=== PATIENT | female | born 1980 | race Caucasian/White ===

== ENCOUNTER 2017-02-24 17:30 | Emergency (ER) | payer OTHER ==
[2017-02-24] MEDS ORDERED: ALBUTEROL NEB 2.5 MG/3 ML INH STA (18:02)
--- NOTE | 2017-02-24 18:03 | ED Physician Documentation ---
PD HPI DYSPNEA - Stated complaint Stated Complaint: COUGH/DIFFICULTY BREATHING - Chief complaint Chief Complaint: Resp - History obtained from History obtained from: Patient - History of Present Illness Timing - onset: Other (4 days of illness with productive cough and chest tightness associated with shortness of breath and fevers. She had body aches at the outset which are now gone. She saw her physician 2 days ago and was diagnosed with clinical pneumonia, despite taking a Z-Shaquille she is not improving. She also has been taking hydrocodone-containing cough syrup. She has no personal history of asthma or other pulmonary diseases.) Review of Systems Constitutional: reports: Fever, Chills, Myalgias (gone), Fatigue Nose: denies: Rhinorrhea / runny nose Throat: denies: Sore throat Cardiac: reports: Chest pain / pressure. 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) Psych: Post traumatic stress disorder Musculoskeletal: Chronic back pain Derm: Other - Past Surgical History Past Surgical History: No Ortho: Spine surgery, Other - Present Medications Home Medications: Ambulatory Orders Medication Instructions Recorded Confirmed Albuterol Sulfate [Proventil Hfa 1 - 2 puffs IH Q4H PRN #1 02/24/17 Inhaler] hfa.aer.ad Azithromycin [Zithromax] 1 gm PO DAILY 02/24/17 02/24/17 Guaifenesin/Pseudoephedrne HCl 1 each PO BID PRN #20 tab.er.12h 02/24/17 [Mucinex D ER 600-60 mg Tablet] HYDROcod/ACETAM 5/325 [Salyer 5/325] 1 - 2 ea PO Q6H PRN 02/24/17 02/24/17 Hydrocodone/Chlorpheniramine 5 - 10 ml PO Q6H PRN #120 ml 02/24/17 [Vituz Solution] predniSONE [Deltasone] 60 mg PO DAILY 5 Days tablet 02/24/17 - Allergies Allergies/Adverse Reactions: Allergies Allergy/AdvReac Type Severity Reaction Status Date / Time aspirin Allergy Hives Verified 02/24/17 17:36 - Social History Does the pt smoke?: No Smoking Status: Never smoker Does the pt drink ETOH?: No Does the pt have substance abuse?: No - Immunizations Immunizations are current?: Yes - POLST Patient has POLST: No PD ED PE NORMAL - Vitals Vital signs reviewed: Yes - General General: Alert and oriented X 3, No acute distress - HEENT HEENT: Other (Status post tonsillectomy) - Neck Neck: Supple, no meningeal sign, No bony TTP, No adenopathy - Cardiac Cardiac: RRR, No murmur - Respiratory Respiratory: No respiratory distress, Other (Wheezy throughout without focal findings) - Abdomen Abdomen: Non tender - Extremities Extremities: No edema, No calf tenderness / cord - Neuro Neuro: Alert and oriented X 3, Normal speech Results - Vitals Vitals: Vital Signs - 24 hr 02/24/17 02/24/17 02/24/17 17:34 18:00 19:14 Temperature 36.6 C 37.0 C Heart Rate 111 H 99 102 H Respiratory 16 18 16 Rate Blood Pressure 130/90 H 138/76 H O2 Saturation 96 96 Oxygen O2 Source Room air - Rads (name of study) 2v chest Radiology: EMP read contemporaneously (Poss lingular infiltrate) PD MEDICAL DECISION MAKING - ED course ED course: She presents with productive cough and other viral symptoms a couple of days after being treated with Z-Shaquille for presumed pneumonia. Possible lingular infiltrate versus epicardial fat pad here, but will continue the antibiotics. Departure - Departure Disposition: 01 Home, Self Care Clinical Impression: Bronchitis Condition: Good Record reviewed to determine appropriate education?: Yes Instructions: ED Bronchitis Asthmatic Prescriptions: Albuterol Sulfate [Proventil Hfa Inhaler] 1 - 2 puffs IH Q4H PRN #1 hfa.aer.ad PRN Reason: Cough Guaifenesin/Pseudoephedrne HCl [Mucinex D ER 600-60 mg Tablet] 1 each PO BID PRN #20 tab.er.12h PRN Reason: congestion Hydrocodone/Chlorpheniramine [Vituz Solution] 5 - 10 ml PO Q6H PRN #120 ml PRN Reason: Cough predniSONE [Deltasone] 60 mg PO DAILY 5 Days tablet Comments: Call your doctor to arrange a follow-up appointment, make the next available appointment. In the interim, return anytime if worse or if new symptoms develop. Your blood pressure was elevated today on check into the emergency department. This does not mean that you have hypertension, it is a common phenomenon to come to the emergency department and have elevated blood pressure. I recommend that you see your primary care physician within the week to have it rechecked when you are feeling better. Discharge Date/Time: 02/24/17 19:15
--- NOTE | 2017-02-24 18:05 | XRAY Report ---
EXAM: CHEST RADIOGRAPHY EXAM DATE: 02/24/2017 05:57 PM. CLINICAL HISTORY: Cough. COMPARISON: None. TECHNIQUE: 2 views. FINDINGS: Lungs/Pleura: Lung volumes are somewhat low. There is opacity within the left lateral lung base on fr ontal view without clear correlate on lateral view. No evidence of pleural effusion. No pneumothorax. Mediastinum: Heart and mediastinal contours are unremarkable. Other: Intrathecal leads are in place. IMPRESSION: 1. Lung volumes are somewhat low. Normal heart size. 2. Opacity within the left lung base on frontal view could represent prominent epicardiac fat or ling ular infiltrate. 3. Lungs are otherwise clear. 4. No pneumothorax. [facility] Referring Provider Line: [phone] SITE ID: [id number]
[2017-02-24 19:15] VITALS: BP 138/76
== END 2017-02-24 19:15 | disposition home or self-care (01) ==
LOC: ED 17:30
DX: J40 Bronchitis, not specified as acute or chronic (principal)
CPT/HCPCS: 71020; 94640; 99283; J7613

== ENCOUNTER 2017-03-07 23:17 | Emergency (ER) | payer OTHER ==
--- NOTE | 2017-03-08 | XRAY Report ---
EXAM: CHEST RADIOGRAPHY EXAM DATE: 03/07/2017 11:41 PM. CLINICAL HISTORY: Cough and fever. COMPARISON: 02/24/2017. TECHNIQUE: 2 views. FINDINGS: Lungs/Pleura: No focal opacities evident. No pleural effusion. No pneumothorax. Normal volumes. Mediastinum: Heart and mediastinal contours are unremarkable. Other: Thoracic spine stimulator leads noted. IMPRESSION: Clear lungs. [facility] Referring Provider Line: [phone] SITE ID: [id number]
--- NOTE | 2017-03-08 00:26 | ED Physician Documentation ---
PD HPI URI - Stated complaint Stated Complaint: COUGH,SOA,DIZZINESS - Chief complaint Chief Complaint: Resp - History obtained from History obtained from: Patient, Family - History of Present Illness Timing - onset: How many weeks ago (1) Timing details: Gradual onset, Still present Associated symptoms: Fever, Chills, Dry cough Contributing factors: Sick contact Similar symptoms before: Work up / diagnostics, Treatment Recently seen: Clinic - Additional information Additional information: Patient is a 37 year old female who is presenting to the emergency department for fevers, cough and an elevated blood pressure. patient states that she was diagnosed with pneumonia and bronchitis. Patient states that she finished her course of antibiotics but still has been coughing and using an inhaler. patient states that she checked her blood pressure and it was high. Review of Systems Constitutional: reports: Fever, Chills, Myalgias Eyes: reports: Photophobia, Irritation. denies: Decreased vision Ears: denies: Ear pain, Drainage/discharge Nose: reports: Rhinorrhea / runny nose, Congestion Throat: reports: Sore throat Respiratory: reports: Cough, Wheezing GI: reports: Nausea. denies: Vomiting, Constipation, Diarrhea : denies: Dysuria, Frequency Skin: denies: Rash, Lesions Musculoskeletal: reports: Back pain Neurologic: reports: Generalized weakness. 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) Psych: Post traumatic stress disorder Musculoskeletal: Chronic back pain Derm: Other - Past Surgical History Past Surgical History: No Ortho: Spine surgery, Other - Present Medications Home Medications: Ambulatory Orders Medication Instructions Recorded Confirmed Albuterol Sulfate [Proventil Hfa 1 - 2 puffs IH Q4H PRN #1 02/24/17 Inhaler] hfa.aer.ad Guaifenesin/Pseudoephedrne HCl 1 each PO BID PRN #20 tab.er.12h 02/24/17 [Mucinex D ER 600-60 mg Tablet] Hydrocodone/Chlorpheniramine 5 - 10 ml PO Q6H PRN #120 ml 02/24/17 [Vituz Solution] Benzonatate [Tessalon Perle] 100 mg PO TID #15 capsule 03/08/17 Codeine Phosphate/Guaifenesin 5 ml PO DAILY #100 ml 03/08/17 [Guaifen-Codeine 100-10 mg/5 ml] Ondansetron Odt [Zofran] 4 mg TL Q6H PRN #14 tablet 03/08/17 - Allergies Allergies/Adverse Reactions: Allergies Allergy/AdvReac Type Severity Reaction Status Date / Time aspirin Allergy Hives Verified 03/07/17 23:26 - Social History Does the pt smoke?: No Smoking Status: Never smoker Does the pt drink ETOH?: No Does the pt have substance abuse?: No - Immunizations Immunizations are current?: Yes - POLST Patient has POLST: No PD ED PE NORMAL - Vitals Vital signs reviewed: Yes - General General: Alert and oriented X 3 - HEENT HEENT: Atraumatic, PERRL, Moist mucous membranes - Neck Neck: Supple, no meningeal sign - Abdomen Abdomen: Soft, Non distended - Derm Derm: Normal color, No rash - Extremities Extremities: No deformity, No calf tenderness / cord - Neuro Neuro: Alert and oriented X 3, No motor deficit, No sensory deficit, Normal speech PD ED PE EXPANDED - General General: Alert, Other (ill appearing) - HEENT HEENT: Ears normal - Eyes Eyes: Injected conj/sclera - Cardiac Cardiac: Tachy - Respiratory Respiratory: No: Accessory mm use, Wheezing Results - Vitals Vitals: Vital Signs - 24 hr 03/07/17 23:22 Temperature 36.8 C Heart Rate 113 H Respiratory 20 Rate Blood Pressure 143/97 H O2 Saturation 100 Oxygen O2 Source Room air - Labs Labs: Laboratory Tests 03/07/17 23:29 Influenza A (Rapid) Negative Influenza B (Rapid) Negative Influenza Types A,B Ag - - Rads (name of study) chest x-ray Radiology: Final report received (no acute abnormality) PD MEDICAL DECISION MAKING - ED course Complexity details: reviewed old records, reviewed results, re-evaluated patient , considered differential, d/w patient, d/w family ED course: Patient was seen and examined at bedside. patient had the physical appearance of someone with the flu or other viral syndrome. chest x-ray was performed and within normal limits. Patient was made aware of the findings and detailed discharge and follow up instructions. ptaient required no further inpatient work up and was stable for discharge with outpatient followup. Departure - Departure Disposition: Home, Self Care Clinical Impression: Bronchitis Condition: Good Instructions: ED Bronchitis Asthmatic Follow-Up: oNrma Damon MD [Primary Care Provider] - Within 3 Days Prescriptions: Benzonatate [Tessalon Perle] 100 mg PO TID #15 capsule Codeine Phosphate/Guaifenesin [Guaifen-Codeine 100-10 mg/5 ml] 5 ml PO DAILY # 100 ml Ondansetron Odt [Zofran] 4 mg TL Q6H PRN #14 tablet PRN Reason: Nausea / Vomiting Comments: Your diagnostics today were within normal limits. Your symptoms are likely viral in nature. You should record your blood pressures over the next week and see if you get consistent results. You should continue with the inhaler and the cough medicine. You should follow up with your doctor this week for re- evaluation.
[2017-03-08 00:44] VITALS: BP 136/77
== END 2017-03-08 00:43 | disposition home or self-care (01) ==
LOC: ED 23:17
DX: J40 Bronchitis, not specified as acute or chronic (principal)
CPT/HCPCS: 71046; 87275; 87276; 99283

== ENCOUNTER 2017-03-17 12:44 | Outpatient (CLI) | payer OTHER ==
[2017-03-17 14:04] LABS: CALCIUM 8.6 mg/dL (8.5-10.3); CREATININE 0.7 mg/dL (0.4-1.0)
== END 2017-03-17 12:45 | disposition home or self-care (01) ==
LOC: LAB 12:44
PROVIDERS: ATTEND Internal Medicine
DX: I10 Essential (primary) hypertension (principal); R23.2 Flushing
CPT/HCPCS: 36415; 80048; 81599; 83835; 84443; 86316

== ENCOUNTER 2017-03-20 08:00 | Outpatient (CLI) | payer OTHER ==
[2017-03-25 16:57] LABS: METANEPHRINE 104 mcg/24 h (36-190); NORMETANEPHRINE 322 mcg/24 h (35-482); TOTAL VOLUME 1850 mL
== END 2017-03-20 23:59 | disposition home or self-care (01) ==
LOC: LAB.R 08:00
PROVIDERS: ATTEND Internal Medicine
DX: Z53.9 Procedure and treatment not carried out, unspecified reason (principal)
CPT/HCPCS: 81599; 83630; 83835; 87045; 87046; 87177; 87209; 87493

== ENCOUNTER 2017-03-21 08:00 | Outpatient (CLI) | payer OTHER ==
[2017-03-25 16:57] LABS: METANEPHRINE 104 mcg/24 h (36-190); NORMETANEPHRINE 322 mcg/24 h (35-482); TOTAL VOLUME 1850 mL
== END 2017-03-21 08:01 | disposition home or self-care (01) ==
LOC: LAB.R 08:00
PROVIDERS: ATTEND Internal Medicine
DX: I10 Essential (primary) hypertension (principal); R19.7 Diarrhea, unspecified; R23.2 Flushing
CPT/HCPCS: 81599; 83630; 83835; 87045; 87046; 87177; 87209; 87329; 87493

== ENCOUNTER 2017-03-24 12:57 | Outpatient (CLI) | payer OTHER ==
[2017-03-24 14:03] LABS: INR 1.2 (0.8-1.2); PT - PROTHROMBIN TIME 13.8 secs (9.9-12.6)
== END 2017-03-24 12:58 | disposition home or self-care (01) ==
LOC: LAB 12:57
PROVIDERS: ATTEND Ophthalmology
DX: R51 Headache (principal)
CPT/HCPCS: 36415; 85049; 85610

== ENCOUNTER 2017-04-14 08:19 | Outpatient (CLI) | payer OTHER ==
--- NOTE | 2017-04-14 16:06 | Ultrasound Report ---
RIGHT UPPER QUADRANT ULTRASOUND: 04/14/2017 CLINICAL INDICATION: Nausea. COMPARISON: 02/19/2016 TECHNIQUE: Real-time scanning was performed with sales representative canvas products static images obtained. FINDINGS: The liver measures 14.3 cm. Hepatic echogenicity is increased, compatible with fatty infiltration. No focal parenchymal lesion or intrahepatic biliary dilatation is present. The common bile duct measures 3 mm. The gallbladder is unremarkable. The right kidney measures 10 cm, and demonstrates no hydronephrosis. No free fluid is seen. IMPRESSION: FATTY INFILTRATION OF THE LIVER. NO EVIDENCE OF CHOLELITHIASIS OR BILIARY OBSTRUCTION. TD: 04/14/2017 16:06
== END 2017-04-14 08:20 | disposition home or self-care (01) ==
LOC: DI 08:19
PROVIDERS: ATTEND Internal Medicine
DX: K76.0 Fatty (change of) liver, not elsewhere classified (principal)
CPT/HCPCS: 76705

== ENCOUNTER 2017-05-13 08:16 | Outpatient (CLI) | payer OTHER ==
--- NOTE | 2017-05-16 13:22 | Ultrasound Report ---
RENAL ARTERY ULTRASOUND: 05/13/2017 COMPARISON: None. INDICATION: Hypertension. TECHNIQUE: Real-time sonographic vascular imaging was performed by the electric switch tester through the renal arteries utilizing both color-flow and Doppler flow analysis. Multiple technical sales representatives static images were saved for review. RT~KIDNEY LT KIDNEY Size: 9.6 x 5.0 x 5.1 cm Size: 10.4 x 6.1 x 5.0 cm SEGMENTAL ARTERY SEGMENTAL ARTERY PSV RI PSV RI Upper Pole 33.8 0.58 Upper Pole 51 0.61 Mid Pole 44.5 0.68 Mid Pole 44 0.56 Lower Pole 28.8 0.56 Lower Pole 41 0.54 RIGHT RENAL ARTERY LEFT RENAL ARTERY PSV RA/AO PSV RA/AO Origin: 99 0.83 Origin: 100 0.84 Proximal: 124 1.05 Proximal: 113 0.95 Mid: 116 0.98 Mid: 130 1.1 Distal: 69 0.58 Distal: 111 0.95 PROX AORTA PSV:~ 118 RRV patent~~~~~ Yes LRV patent~Yes CRITERIA FOR CLASSIFICATION OF RENAL ARTERY DISEASE BY DUPLEX SCANNING RENAL ARTERY DIAMETER REDUCTION RENAL ARTERY PSV RAR Normal < 180 cm/sec <3.5 < 60 % >180 cm/sec <3.5 < 60 % >180 cm/sec <3.5 Occlusion (100)% No signal No signal FINDINGS: The kidneys have a grossly normal appearance without evidence of stones, mass, or hydronephrosis. IMPRESSION: NO EVIDENCE OF CLINICALLY SIGNIFICANT RENAL ARTERY STENOSIS. NORMAL PEAK SYSTOLIC VELOCITIES. MTDD
== END 2017-05-13 08:17 | disposition home or self-care (01) ==
LOC: DI 08:16
PROVIDERS: ATTEND Internal Medicine
DX: I10 Essential (primary) hypertension (principal)
CPT/HCPCS: 93975

== ENCOUNTER 2017-07-18 10:15 | Outpatient (CLI) | payer OTHER ==
[2017-07-18 10:57] LABS: BASOPHILS % (AUTO) 0.6 %; EOSINOPHILS # (AUTO) 0.2 10^3/uL (0.0-0.7); EOSINOPHILS % (AUTO) 2.6 %; HGB - HEMOGLOBIN 12.8 g/dL (12.0-16.0); LYMPHOCYTES # (AUTO) 2.2 10^3/uL (1.5-3.5); LYMPHOCYTES % (AUTO) 30.5 %; MEAN CORPUSCULAR HEMOGLOBIN 26.5 pg (27.0-31.0); MEAN CORPUSCULAR HGB CONC 33.6 g/dL (32.0-36.0); MEAN PLATELET VOLUME 7.5 fL (7.9-10.8); MONOCYTES # (AUTO) 0.4 10^3/uL (0.0-1.0); NEUTROPHILS # (AUTO) 4.4 10^3/uL (1.5-6.6); NEUTROPHILS % (AUTO) 60.3 %; PLT - PLATELET COUNT 274 10^3/uL (130-450); RED BLOOD COUNT 4.84 10^6/uL (4.20-5.40); RED CELL DISTRIBUTION WIDTH 13.7 % (12.0-15.0); WHITE BLOOD COUNT 7.3 x10^3/uL (4.8-10.8)
[2017-07-18 11:02] LABS: BILIRUBIN,URINE NEGATIVE (NEGATIVE); GLUCOSE, URINE (UA) NEGATIVE (NEGATIVE); KETONES,URINE (UA) NEGATIVE (NEGATIVE); LEUKOCYTE ESTERASE, URINE NEGATIVE (NEGATIVE); NITRITE,URINE NEGATIVE (NEGATIVE); OCCULT BLOOD,URINE NEGATIVE (NEGATIVE); PH,URINE 5.5 PH (5.0-7.5); PROTEIN,URINE NEGATIVE (NEGATIVE); UROBILINOGEN,URINE 0.2 (NORMAL) E.U./dL (NORMAL)
[2017-07-18 11:07] LABS: CLARITY,URINE CLEAR (CLEAR)
[2017-07-18 11:19] LABS: ALBUMIN 4.2 g/dL (3.2-5.5); ALBUMIN/GLOBULIN RATIO 1.4 (1.0-2.2); BILIRUBIN,TOTAL 0.9 mg/dL (0.2-1.0); CALCIUM 8.7 mg/dL (8.5-10.3); CREATININE 0.7 mg/dL (0.4-1.0); TOTAL PROTEIN 7.1 g/dL (6.7-8.2)
== END 2017-07-18 10:16 | disposition home or self-care (01) ==
LOC: LAB 10:15
PROVIDERS: ATTEND Internal Medicine
DX: R14.0 Abdominal distension (gaseous) (principal); R11.2 Nausea with vomiting, unspecified; R19.7 Diarrhea, unspecified; R10.9 Unspecified abdominal pain
CPT/HCPCS: 36415; 80053; 81001; 81003; 82150; 83690; 85025; 87086